=== PATIENT | male | born 1935 | race Caucasian/White ===

== ENCOUNTER → 2017-10-17 | Day surgery (SDC) | payer MEDICARE ==
[2017-10-10 10:40] LABS: BASOPHILS % 0.3 % (0.0-1.0); EOSINOPHILS # (AUTO) 0.1 (0.0-0.4); EOSINOPHILS % 0.8 % (0.0-6.0); HEMATOCRIT 37.1 % (38.2-49.6); HEMOGLOBIN 12.4 g/dL (14.0-18.0); LYMPHOCYTES # (AUTO) 0.9 (1.0-3.2); LYMPHOCYTES % 14.6 % (18.0-39.1); MEAN CORPUSCULAR HGB CONC 33.4 g/dL (31-35); MEAN CORPUSCULAR VOLUME 95.9 fL (81-99); MONOCYTES # (AUTO) 0.5 (0.2-0.8); MONOCYTES % 7.6 % (4.4-11.3); NEUTROPHILS # (AUTO) 4.9 (2.1-6.9); NEUTROPHILS % 76.1 % (38.7-80.0); PLATELET COUNT 98 x10e3/uL (140-360); RED BLOOD COUNT 3.87 x10e6/uL (4.3-5.7); RED CELL DISTRIBUTION WIDTH 12.2 % (11.7-14.4)
[2017-10-10 11:10] LABS: ANION GAP 11.2 mmol/L (8-16); CALCIUM 9.6 mg/dL (8.4-10.2); CREATININE, SERUM 1.3 mg/dL (0.72-1.25); POTASSIUM 4.2 mmol/L (3.5-5.1)
--- NOTE | 2017-10-10 11:15 | Diagnostic Imaging Report ---
PROCEDURE:CHEST 2 VIEWS TECHNIQUE:PA and lateral chest INDICATION:Preoperative evaluation for prostate surgery COMPARISON:None. FINDINGS: Symmetric hyperinflation lungs are otherwise clear. No pleural effusions. Normal heart size and mediastinal contour. Intact skeleton. Atherosclerosis of the descending thoracic aorta. CONCLUSION: Hyperinflation in keeping with air trapping from COPD. Dictated by: Darell Gramajo M.D. on 10/10/2017 at 11:16 Electronically approved by: Darlel Gramajo M.D. on 10/10/2017 at 11:16
[~2017-10-17] MED LIST: ALDACTONE25 MG; ALDACTONE50 MG PO; ALENDRONATE SOD70 MG PO; BELLADONNA/OPIUM 60 MG SUPP PR ONE; CEFAZOLIN SOD 1 GM VIAL ONE; DEXAMETHASONE SOD PHOS INJ 4 MG/ML VIAL ONE; DOXAZOSIN MESYLA2 MG PO; EPHEDRINE SULFATE INJ 50 MG/10 ML SYR ONE; FENTANYL CITRATE/PF 100MCG/2 ML INJ ONE; GLYCOPYRROLATE INJ 1MG/ 5 ML SYR ONE; IOPAMIDOL 610MG/1ML 300 MG/ML VIAL IV ONE; LIDOCAINE HCL 2% LOCAL INJ 5 ML SDV VIAL INJ ONE; MOBIC7.5 MG PO; ONDANSETRON HCL INJ 2 MG/ML VIAL ONE; PRAVASTATIN SOD10 MG; PRAVASTATIN SOD20 MG PO; PROPOFOL IV EMULSION 10 MG/ML 20 ML VIAL ONE; SEVOFLURANE INHAL SOLN 250 ML PEN BTL ONE; ZESTRIL20 MG PO
--- OUTSIDE RECORDS SUMMARY | 2017-10-17 05:19 | XMS REPORT | Clinical Summary ---
Author Author MICHAEL [facility] Address Unknown Phone Unavailable Care Team Providers Care Psychometrist Name Role Phone PCP Unavailable Allergies No Known Allergies Current Medications Prescription Sig. Disp. Refills Start End Date Status Date pravastatin (PRAVACHOL) Take 10 mg by mouth Active 20 MG tablet daily. lisinopril Take 10 mg by mouth Active (PRINIVIL,ZESTRIL) 10 MG daily. tablet spironolactone Take 25 mg by mouth Active (ALDACTONE) 50 MG tablet daily. alendronate (FOSAMAX) 70 Take 70 mg by mouth every Active MG tablet 7 days Take in the morning with a full glass of water, on an empty stomach, and do not take anything else by mouth or lie down for the next 30 min. . meloxicam (MOBIC) 7.5 MG Take 7.5 mg by mouth Active tablet every other day. multivitamin per tablet Take 1 tablet by mouth Active daily. Missing or Non-Formulary Take 2 mg by mouth every Active Medication other day DOXAZONSIN . 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[facility]) 09/14/2015 Subdural hemorrhage, nontraumatic ([facility]) 09/12/2015 Social History Tobacco Use Types Packs/Day Years Used Date Former Smoker Alcohol Use Drinks/Week oz/Week Comments No Sex Assigned at Date Recorded Not on file Last Filed Vital Signs Not on file Plan of Treatment Not on file Implants Implanted Type Area Buyer Broker Device Expiration Model / Identifier Date Serial / Lot Matrix Floseal Hemo W/O Ndl 10 Cement/[place] Left: Head HOWELL:BIOSCI [id number] / [id number] - [id number] ler/Adhesi / Implanted: Qty: 1 on 09/14/2015 by ve [id number] Kahlil Hernandez MD Cover [place] Hole Low Prof 10mm Fracture/F Left: Head BENJIE:BENJIE [id number] / [id number] - [id number] ixation LEIBINGER / Implanted: Qty: 2 on 09/14/2015 by Kahlil Hernandez MD Plt W/Tab Un3 2h [id number] - Fracture/F Left: Head BENJIE:CRANIOM [id number] / [id number] ixation AXILLOFACIAL / Implanted: Qty: 2 on 09/14/2015 by Kahlil Hernandez MD Cath Lumen Evd Bactisealclr - Neuro Left: Head J &J:CODMAN & 2016 [id number] / [id number] SHURTLEFF / Implanted: Qty: 1 on 09/14/2015 by [id number] Kahlil Hernandez MD Gold Screws Neuro Left: Head [id number] / Implanted: Qty: 9 on 09/14/2015 by / Kahlil Hernandez MD Results Not on fileafter 10/16/2016
--- OUTSIDE RECORDS SUMMARY | 2017-10-17 05:19 | XMS REPORT ---
Author [facility] Address Unknown Phone Unavailable Care Team Providers Care Fire Information Officer Name Role Phone NORA DAWSON Unavailable Unavailable Problems This patient has no known problems. Allergies, Adverse Reactions, Alerts This patient has no known allergies or adverse reactions. Medications This patient has no known medications. Results Test Description Test Time Test Comments Text Results Atomic Results Result Comments CHEST 2 VIEWS [place] [id number] [place] [address] Patient Name: URSULA VASQUEZ MR #: [id number] : 1935 Age/Sex: 81/M Req #: [id number] Adm Physician: Ordered by: NORA DAWSON MD Report #: [id number] Location: OR Room/Bed: Procedure: [id number] DX/ CHEST 2 VIEWS Exam Date: 10/10/17 Exam Time: 1030 REPORT STATUS: Signed PROCEDURE: CHEST 2 VIEWS TECHNIQUE: PA and lateral chest INDICATION: Preoperative evaluation for prostate surgery COMPARISON: None. FINDINGS: Symmetric hyperinflation lungs are otherwise clear. No pleural effusions. Normal heart size and mediastinal contour. Intact skeleton. Atherosclerosis of the descending thoracic aorta. CONCLUSION: Hyperinflation in keeping with air trapping from COPD. Dictated by: Lashawn Gramajo M.D. on 10/10/2017 at 11:16 Electronically approved by: Lashawn Gramajo M.D. on 10/10/2017 at 11: 16 Dictated By: LASHAWN GRAMAJO MD [id number] Transcribed By: SOLO on 10/10/17 1116 COPY TO: NORA DAWSON MD
--- NOTE | 2017-10-17 08:37 | Operative Report ---
DATE OF PROCEDURE: October 17, 2017 PREOPERATIVE DIAGNOSES 1. BPH. 2. Bladder outlet obstruction. 3. Bladder lesion. POSTOPERATIVE DIAGNOSES 1. BPH. 2. Bladder outlet obstruction. 3. Bladder lesion. OPERATION PERFORMED: Cystoscopy, retrograde pyelograms, bladder biopsy, UroLift implant 2 per side for a total of 4. ANESTHESIA: Staff. Anesthesia general. FINDINGS: Bilobar hyperplasia bilaterally. High-grade 1 to 2 trabeculation. Large amount of petechiae in the bladder. No stricture was seen. PROCEDURE: With the patient under satisfactory general anesthesia, the patient was placed in the supine position on the operating table. Legs were placed on stirrups. Genitalia were then prepped with Betadine soap and solution and draped in the usual manner. A 22-Congolese cystourethroscope was passed per urethra into the bladder. The bladder was inspected and noted multiple petechiae throughout the bladder. Cup biopsy forceps were used to obtain 2 biopsies from the bladder for mast cell count. After that, the Bugbee electrode was introduced, and the bases of the biopsy sites were fulgurated to prevent bleeding. At this point, the cystoscope was changed to a cystoscopy bridge by Nicole. The UroLift delivery device was then placed in. Four UroLift implants were used, 2 on the right and 2 on the left. The 1st side treated was the left side. It shows a treatment site 1.5 cm distal to the bladder neck. The distal tip delivery device was angled laterally approximately 20 degrees. The trigger was pulled, deploying a needle containing the implant through the prostate. The needle was then retracted, allowing 1 end of the implant to be delivered to the capsular surface of the prostate. The implant was then tensioned to ensure capsular sitting and removal of slack monofilament. At this point, verification of the monofilament being centered in the delivery bay was seen. Excess filament was then severed. The delivery device was then readvanced into the bladder. Some bleeding was noted from the 1st implant. The delivery device was then replaced with cystoscope and bridge, and the implantation location opening effect was confirmed cystoscopically. This was repeated 1 more time on the left side and then twice on the right side. At the end of the procedure, some bleeding was identified coming from the left side of the implant. At this point, a 16-Congolese Raygoza catheter was passed per urethra into the bladder. Bloody efflux was identified, but no clots were seen. At this point, the B and O suppository was placed in the rectum. Instruments had been removed. The patient was taken to the recovery room in satisfactory condition. DISCHARGE INSTRUCTIONS: He was given a prescription for Augmentin to take twice daily. He will be seen in the office within 24 hours where the Raygoza catheter will be removed. The was told to be aware of bleeding, and if there is any problem with drainage to call me at the office so I can see the patient immediately. Job#: [id number]
== END | disposition home or self-care (01) ==
LOC: OR 05:16
PROVIDERS: ATTEND Urology
DX: N40.1 Benign prostatic hyperplasia with lower urinary tract symptoms (principal); N13.8 Other obstructive and reflux uropathy; R35.1 Nocturia; E85.89 Other amyloidosis; N32.89 Other specified disorders of bladder; R23.3 Spontaneous ecchymoses; I10 Essential (primary) hypertension; J44.9 Chronic obstructive pulmonary disease, unspecified; R00.1 Bradycardia, unspecified; Z01.810 Encounter for preprocedural cardiovascular examination; H91.90 Unspecified hearing loss, unspecified ear; Z01.812 Encounter for preprocedural laboratory examination; Z01.818 Encounter for other preprocedural examination; Z86.73 Personal history of transient ischemic attack (TIA), and cerebral infarction without residual deficits
CPT/HCPCS: 52204; C9740; 36415; 71046; 74420; 80053; 85025; 87086; 87186; 88305; 88313; 93005; J0690; J1100; J2001; J2405

== ENCOUNTER 2020-04-15 16:53 | Emergency (ER) | payer MEDICARE ==
[~2020-04-15] VITALS: Ht 172.7 cm; Wt 72.6 kg
[~2020-04-15 16:53] MED LIST changes: -BELLADONNA/OPIUM 60 MG SUPP PR ONE; -CEFAZOLIN SOD 1 GM VIAL ONE; -DEXAMETHASONE SOD PHOS INJ 4 MG/ML VIAL ONE; -EPHEDRINE SULFATE INJ 50 MG/10 ML SYR ONE; -FENTANYL CITRATE/PF 100MCG/2 ML INJ ONE; -GLYCOPYRROLATE INJ 1MG/ 5 ML SYR ONE; -IOPAMIDOL 610MG/1ML 300 MG/ML VIAL IV ONE; -LIDOCAINE HCL 2% LOCAL INJ 5 ML SDV VIAL INJ ONE; -ONDANSETRON HCL INJ 2 MG/ML VIAL ONE; -PROPOFOL IV EMULSION 10 MG/ML 20 ML VIAL ONE; -SEVOFLURANE INHAL SOLN 250 ML PEN BTL ONE
--- OUTSIDE RECORDS SUMMARY | 2020-04-15 17:35 | XMS REPORT | Continuity of Care Document ---
Author Author Jamal [facility] [employer] Fidelia, Vaughn Ericcrescencio Lopez [facility] [employer] ([employer]) Address Unknown Phone Unavailable Care Team Providers Care Design Printing Machine Set Up Operator Name Role Phone 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 [facility] [place] Hypercholesterolemia (disorder) Active Problem OPID [place],Formerly named [facility] Hypertensive disorder, systemic arterial (disorder) Active Problem 03/25/2020 [facility],Formerly named [facility] Medications Medication Details Route Status Patient Instructions Ordering Provider Order Date Source metoclopramide (ANES) Route: I V, Drug form: INJ, ONCE, Stop date: 04/15/16 12:08:00 ROUGH RICE TENDER Inactive 04/15/2016 Formerly named [facility] midazolam (ANES) Route: IV, ug form: SOLN, ONCE, Stop date: 04/15/16 11:33:00 ROUGH RICE TENDER Inactive 04/15/2016 Formerly named [facility] glycopyrrolate (ANES) Route: I V, Drug form: INJ, ONCE, Stop date: 04/15/16 11:33:00 ROUGH RICE TENDER Inactive 04/15/2016 Formerly named [facility] metoclopramide (ANES) Route: I V, Drug form: INJ, ONCE, Stop date: 04/15/16 11:33:00 ROUGH RICE TENDER Inactive 04/15/2016 Formerly named [facility] famotidine (ANES) Route: IV, D rug form: INJ, ONCE, Stop date: 04/15/16 11:33:00 ROUGH RICE TENDER Inactive 04/15/2016 Formerly named [facility] dexamethasone (ANES) Route: IV , Drug form: INJ, ONCE, Stop date: 04/15/16 11:28:00 ROUGH RICE TENDER Inactive 04/15/2016 Formerly named [facility] ondansetron (ANES) Route: IV, Drug form: INJ, ONCE, Stop date: 04/15/16 11:28:00 ROUGH RICE TENDER Inactive 04/15/2016 Formerly named [facility] ePHEDrine (ANES) Route: IV, Dr ug form: INJ, ONCE, Stop date: 04/15/16 11:28:00 ROUGH RICE TENDER Inactive 04/15/2016 Formerly named [facility] acetaminophen (ANES) Route: IV , Drug form: INJ, ONCE, Stop date: 04/15/16 11:28:00 ROUGH RICE TENDER Inactive 04/15/2016 Formerly named [facility] ceFAZolin (ANES) Route: IV, Dr ug form: INJ, ONCE, Stop date: 04/15/16 11:23:00 ROUGH RICE TENDER Inactive 04/15/2016 Formerly named [facility] propofol (ANES) Route: IV, Alexander g form: INJ, ONCE, Stop date: 04/15/16 11:23:00 ROUGH RICE TENDER Inactive 04/15/2016 Formerly named [facility] fentaNYL (ANES) Route: IV, Alexander g form: INJ, ONCE, Stop date: 04/15/16 11:18:00 ROUGH RICE TENDER Inactive 04/15/2016 Formerly named [facility] lidocaine (ANES) Route: IV, Dr ug form: INJ, ONCE, Stop date: 04/15/16 11:18:00 ROUGH RICE TENDER Inactive 04/15/2016 Formerly named [facility] Naloxone Notes: Same as Narcan Inactive 04/15/2016 Formerly named [facility] Flumazenil Notes: (Same as: Ro mazicon) Inactive 04/15/2016 Formerly named [facility] Ondansetron Notes: (Same as: Portia ellis) MEDICATION WASTE Product Size: 4 mg Product Wasted: ___ mg Inactive 04/15/2016 Formerly named [facility] Meperidine Notes: (Same As: De merol) Inactive 04/15/2016 Formerly named [facility] Hydromorphone Notes: Same as D ilaudid Inactive 04/15/2016 Formerly named [facility] Morphine Notes: (Same as:MORPh ine Sulfate) Inactive 04/15/2016 Formerly named [facility] Calcium Chloride 0.0014 MEQ/ML / Potassi um Chloride 0.004 MEQ/ML / Sodium Chloride 0.103 MEQ/ML / Sodium Lactate 0.028 MEQ/ML Injectable Solution 1,000 mL, Rate: 125 ml/hr, Infuse over: 8 hr, Route: IV, Dosing Weight 74.091 kg, Total Volume: 1,000, Start date: 04/15/16 9:43:00 ROUGH RICE TENDER, Duration: 30 day, Stop date: 05/15/16 9:42:00 ROUGH RICE TENDER Inactive 04/15/2016 Formerly named [facility] Hydralazine Notes: (Same as: A presoline) Push over 5 minutes Inactive 04/15/2016 Formerly named [facility] Ketorolac 4 days MEDICA TION WASTE Product Size: 30 mg Product Wasted: ___ mg Inactive 04/15/2016 Formerly named [facility] Labetalol Notes: (Same as: Brennon Pelaez) Push over 2 minutes Give bolus over 2-3 minutes. Inactive 04/15/2016 Formerly named [facility] Cefazolin Notes: Same as: Ancef Inactive 04/15/2016 Formerly named [facility] Calcium Chloride 0.0014 MEQ/ML / Potassi um Chloride 0.004 MEQ/ML / Sodium Chloride 0.103 MEQ/ML / Sodium Lactate 0.028 MEQ/ML Injectable Solution 1,000 mL, Rate: 25 ml/hr, Infuse over: 4 0 hr, Route: IV, Dosing Weight 74.091 kg, Total Volume: 1,000, Start date: 04/15/16 9:40:00 ROUGH RICE TENDER, Duration: 30 day, Stop date: 05/15/16 9:39:00 ROUGH RICE TENDER Inactive 04/15/2016 Formerly named [facility] LR 1000 mL INJ (ANES) Route: I V, Total Volume: 1,000, Start date: 04/15/16 9:17:00 ROUGH RICE TENDER, Stop date: 04/15/16 10:17:00 ROUGH RICE TENDER Inactive 04/15/2016 Formerly named [facility] multivitamin 1 tab, PO, Daily, 0 Refill(s) Active 04/06/2016 Formerly named [facility] meloxicam 7.5 mg oral tablet 7 .5 mg = 1 tab, PO, Daily, # 30 tab, 0 Refill(s) Active 04/06/2016 Formerly named [facility] Alendronic acid 70 MG Oral Tablet 70 mg = 1 tab, PO, Q7D, # 4 tab, 0 Refill(s) Active 04/06/2016 Formerly named [facility] doxazosin 2 mg oral tablet 2 m g = 1 tab, PO, Daily, # 30 tab, 0 Refill(s) Active 04/06/2016 Formerly named [facility] spironolactone 50 mg oral tablet 25 mg = 0.5 tab, PO, Daily, 0 Refill(s) Active 04/06/2016 Formerly named [facility] lisinopril 20 mg oral tablet 1 0 mg = 0.5 tab, PO, Daily, 0 Refill(s) Active 04/06/2016 Formerly named [facility] pravastatin 20 mg oral tablet 10 mg = 0.5 tab, PO, Bedtime, 0 Refill(s) Active 04/06/2016 Formerly named [facility] Allergies, Adverse Reactions, Alerts Substance Category Reaction Severity Reaction type Status Date Reported Comments Source No Known Medication Allergies Assertion Drug aller gy BALDO Rogers Immunizations No Data Provided for This Section Results No Data Provided for This Section Pathology Reports No Data Provided for This Section Diagnostic Reports Report Value Date Source Shoulder series DX Exam: Righ t shoulder x-ray, 3 views Reason for Exam: - 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 Bulky osteophyte formation seen of the right glenohumeral joint and right AC joint. Correlate for rotator cuff impingement and consider further evaluation with MRI exam. No suspicious osteoblastic or osteolytic lesions seen to suggest pathologic involvement. The visualized portions of the right rib cage and right lung are unremarkable. Impression: 1. Bulky osteophyte formation seen of t he right glenohumeral joint and right AC joint. Correlate for rotator cuff impingement and consider further evaluation with MRI exam. 03/23/2020 RAMIREZD Edgar Abdomen complete US ABDOMINAL ULTRASOUND INDICATION: - R14.0 Abdominal distension (gaseous) TECHNIQUE: Grayscale and limited doppler images of the abdomen were obtained and construction representative images were submitted for interpretation. COMPARISON: None FINDINGS: Overlying bowel gas limits evaluation. Liver: the liver is normal in size and measures 14 cm (normal: 13-17 cm). The liver echogenicity is heterogeneous. No surface nodularity. Portal and hepatic veins are patent with normal directions of flow. Biliary: Gallstone is noted. There is no gallbladder wall thickening or sonographic West sign to suggest acute cholecystitis. There is no biliary duct dilation. Mid common bile duct measures 4 mm in diameter. Pancreas: Grossly unremarkable; however, certain portions are obscured by overlying bowel gas and unable to be evaluated. Spleen: Measures 11 cm in maximal dimension (normal < 13 cm). No focal lesion is seen. Kidneys: Right kidney measures 10 cm and left kidney measure 9 cm in length, respectively (normal: 9-12 cm). No hydronephrosis or large shadowing stone. 3 cm simple appearing right renal cyst. Vascular: Visualized portions of the IVC are patent. Atherosclerosis with no obvious aneurysmal dilatation of the aorta. IMPRESSION: Overlying bowel gas limits evaluation. Grossly, mildly heterogeneous liver which can be correlated with LFTs. Cholelithiasis. The pancreas is not well-visualized. Simple appearing right renal cyst. 03/20/2020 OPID [place] Spine lumbar wo contrast MRI M RI LUMBAR SPINE WITHOUT CONTRAST 10/24/2016 11:26 AM CDT COMPARISON: No prior exam. TECHNIQUE: Sagittal T1, sagittal T2 with fat saturation, axial T1 and axial T2 images were obtained. No intravenous gadolinium was given. FINDINGS: The conus medullaris terminates at the L1 level. Chronic T12 vertebral compression fracture is present, with approximately 40% loss of vertebral height. No marrow edema is seen. Mild retropulsion with mild T12 level central canal stenosis is present. T12-L1: Approximately 1.5 mm disc bulge is present with mild central canal stenosis. No mass effect on the conus medullaris. Mild bilateral foraminal stenosis due to bilateral foraminal and extraforaminal disc osteophyte complexes. L1-L2: 1.5 mm disc bulge and moderate facet arthrosis and ligamenta flava redundancy is seen with mild central canal stenosis. Moderate bilateral foraminal stenosis due to bilateral foraminal disc osteophyte complex encroachment. L2-L3: Significant ligamenta flava redundancy and moderate facet arthrosis. Approximately 3.5 mm posterior disc osteophyte complex with moderate to severe central canal stenosis. Severe bilateral foraminal stenosis due to foraminal osteophytes. L3-L4: Severe ligamenta flava redundancy with 2 mm retrolisthesis and 3.3 mm disc bulge. Severe central canal stenosis is present. Severe bilateral foraminal stenosis is present. L4-L5: Severe facet arthrosis and ligamenta flava redundancy with 2 mm anterolisthesis and 3.5 mm disc bulge with severe central canal stenosis, severe right lateral recess stenosis, severe bilateral foraminal stenosis. L5-S1: Right asymmetric posterior disc osteophyte complex measuring 3 mm is present with right lateral recess stenosis and significant mass effect on the right S1 descending nerve root. Mild central canal stenosis. Moderate to severe bilateral foraminal stenosis. Right renal 2.2 cm simple cyst is present. IMPRESSION: 1. Significant multilevel lumbar spine d egenerative changes. 2. Chronic T12 vertebral compression fra cture with mild retropulsion and mild central canal stenosis. No marrow edema. 3. L2-L3 moderate to severe central thania l stenosis. L3-L4 and L4-L5 severe central canal stenosis. 4. L4-L5 and L5-S1 severe right lateral recess stenosis with mass effect on the right L5 and S1 descending nerve roots. 5. Multiple level severe foraminal steno sis. 10/24/2016 BALDO Rogers Consultation Notes No Data Provided for This Section Discharge Summaries No Data Provided for This Section History and Physicals No Data Provided for This Section Vital Signs Vital Sign Value Date Comments Source Systolic (mm Hg) 116 04/15/2016 Formerly named [facility] Diastolic (mm Hg) 55 04/15/2016 Formerly named [facility] Respitory Rate 17 04/15/2016 Formerly named [facility] Respitory Rate 13 04/15/2016 Formerly named [facility] Systolic (mm Hg) 116 04/15/2016 Formerly named [facility] Diastolic (mm Hg) 55 04/15/2016 Formerly named [facility] Respitory Rate 15 04/15/2016 Formerly named [facility] Systolic (mm Hg) 115 04/15/2016 Formerly named [facility] Diastolic (mm Hg) 56 04/15/2016 Formerly named [facility] Weight 74.091 04/06/2016 Formerly named [facility] BMI Calculated 24.47 04/06/2016 Formerly named [facility] Height 173.99 cm 04/06/2016 Formerly named [facility] Encounters Location Location Details Encounter Type Encounter Number Reason For Visit Attending Provider ADM Date DC Date Status Source [facility] [id number] Anne-Marie Osorio 04/15/2016 04/15/2016 [facility] [place] [facility] [id number] Liu Brock 10/24/2016 10/25/2016 BALDO Rogers [facility] [place] [facility] [id number] Liu Brock 03/20/2020 03/21/2020 BALDO Rogers [facility] [place] [facility] [id number] Liu Brock 03/23/2020 03/24/2020 BALDO Rogers Procedures Procedure Code Date Perfomer Comments Source Craniotomy and clipping of intracranial aneurysm [id number] 09/14/2015 [facility] Bilateral replacement of knee joints [id number] 06/05/2009 [facility]DO [facility]Former[facility] named [facility] Assessment and Plan No Data Provided for This Section Plan of Care No Data Provided for This Section Social History Social History Date Source Social History TypeResponse Smoking Status Never smoker; Exposure to Tobacco Smoke None; Cigarette Smoking Last 365 Days No; Reg Smoking Cessation Counseling No entered on: 04/06/16 04/06/2016 BALDO Rogers Social History TypeResponse Smoking Status Never smoker; Exposure to Tobacco Smoke None; Cigarette Smoking Last 365 Days No; Reg Smoking Cessation Counseling No 04/06/2016 Formerly named [facility] Family History No Data Provided for This Section Advance Directives No Data Provided for This Section Functional Status No Data Provided for This Section
--- OUTSIDE RECORDS SUMMARY | 2020-04-15 17:35 | XMS REPORT | Continuity of Care Document ---
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, LUMBAR REGION Active 10/19/2016 [facility] [place] Diagnosis Active 2016-10-19 00:01:00 2016-10-24 11:01:00 Jamal Tomlin [address]01, 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 84968, 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 Active 03/17/2016 [facility] Diagnosis Active 2016-03-17 00:00:00 2016-04-15 05:09:00 Jamal Tomlin Thrombocytopenia Thrombocytopenia Disease Active 2015-09-15 00:00:00 [facility] Normocytic anemia Normocytic anemia Disease Active 2015-09-15 00:00:00 [facility] Hyperglycemia Hyperglycemia Disease Active 2015-09-15 00:00:00 [facility] Essential hypertension Essential hypertension Disease Active 2015-09-14 00:00:00 [facility] Platelet dysfunction Platelet dysfunction Disease Active 00:00:00 [facility] Subdural hemorrhage, nontraumatic Subdural hemorrhage, nontrauma tic Disease Active 2015-09-12 00:00:00 [facility] MANOHAR BILLING BYRON DE LUNA BILLING Active 09/12/2015 [facility] Diagnosis Active 2015-09-12 00:00:00 2015-09 15:02:00 Jamal Tomlin 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 Problem 03[facility]25[facility]2020 [facility] Active 2020-03-25 23:12:51 Carrington Tomlin Hypercholesterolemia (disorder) Hypercholesterolemia (disorder) Active Problem [facility]/25[facility]2020 [facility] Active 2020-03-25 23:12:51 Zara Tomlin Hypertensive disorder, systemic arterial (disorder) Hypertensive disorder, systemic arterial (disorder) Active [facility]/25[facility]2020 [facility] Active 2020-03-25 23:12:51 Jamal Tomlin History of Past Illness Condition Name Condition Details Condition Category Status Onset Date Resolution Date Last Treatment Date Treating Clinician Comments Source 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 06/05/1997 Problem 03/25/2020 [facility] 1997-06-05 00: 00:00 2020-03-25 23:12:51 2020-03-25 23:12:51 Jamal Tomlin Allergies, Adverse Reactions, Alerts Allergy Name Allergy Type Status Severity Reaction(s) Onset Date Inacti ve Date Treating Clinician Comments Source No Known Medication Allergies No Known Medication Allergies Active [facility] Social History Social Habit Start Date Stop Date Quantity Comments Source Sex Assigned At [facility] Alcohol intake 2015-09-15 00:00:00 2015-09-15 00:00:00 Current non-drinker of alcohol (finding) [facility] Dwaynee shakir Smoking Status Start Date Stop Date Source Social History Jamal Tomlin Former smoker 2015-09-15 00:00:00 2015-09-15 00:00:00 [facility] Medications Ordered Medication Name Filled Medication Name Start Date Stop Da te Current Medication? Ordering Clinician Indication Dosage Frequency Signature (SIG) Comments Components Source metoclopramide (ANES) 2016-04-15 18:08:00 No Route: IV, Drug form: INJ, ONCE, Stop date: 04/15/16 12:08:00 MANAGER DISTRIBUTION Jamal Tomlin midazolam (ANES) 2016-04-15 17:33:00 No Route: IV, Drug form: SOLN, ONCE, Stop date: 04/15/16 11:33:00 [employer]NAGER [employer]RIBUT[employer] Keerthi Hartmanann glycopyrrolate (ANES) 2016-04-15 17:33:00 No Route: IV, Drug form: INJ, ONCE, Stop date: 04/15/16 11:33:00 [employer]NAGER [employer] Jamal Hartmanann metoclopramide (ANES) 2016-04-15 17:33:00 No Route: IV, Drug form: INJ, ONCE, Stop date: 04/15/16 11:33:00 [employer]NAGER [employer] Jamal Tomlin famotidine (ANES) 2016-04-15 17:33:00 No Route: IV, Drug form: INJ, ONCE, Stop date: 04/15/16 11:33:00 MANAGER DISTRIBUTION Keerthi mari Tomlin dexamethasone (ANES) 2016-04-15 17:28:00 No Route: IV, Drug form: INJ, ONCE, Stop date: 04/15/16 11:28:00 MANAGER DISTRIBUT[employer] Jamal Hartmanann ondansetron (ANES) 2016-04-15 17:28:00 No Route: IV, Drug form: INJ, ONCE, Stop date: 04/15/16 11:28:00 MANAGER DISTRIBUTION Keerthi dentonkatharinedoron N[place] ePHEDrine (ANES) 2016-04-15 17:28:00 No Route: IV, Drug form: INJ, ONCE, Stop date: 04/15/16 11:28:00 MANAGER DISTRIBUTION Keerthi mari Tomlin acetaminophen (ANES) 2016-04-15 17:28:00 No Route: IV, Drug form: INJ, ONCE, Stop date: 04/15/16 11:28:00 MANAGER DISTRIBUTION Jamal N[place] ceFAZolin ([facility]) 2016-04-15 17:23:00 No Route: IV, Drug form: INJ, ONCE, Stop date: 04/15/16 11:23:00 MANAGER DISTRIBUTION Keerthi Tomlin propofol ([facility]) 2016-04-15 17:23:00 No Route: IV, Drug form: INJ, ONCE, Stop date: 04/15/16 11:23:00 MANAGER DISTRIBUTION [facility] fentaNYL ([facility]) 2016-04-15 17:18:00 No Route: IV, Drug form: INJ, ONCE, Stop date: 04/15/16 11:18:00 MANAGER DISTRIBUTION Keerthi [facility] [address] lidocaine ([facility]) 2016-04-15 17:18:00 No Route: IV, Drug form: INJ, ONCE, Stop date: 04/15/16 11:18:00 MANAGER DISTRIBUTION [facility]thi [facility] [place] Naloxone 2016-04-15 15:43:00 No Notes: Same as Narcan [facility] Flumazenil 2016-04-15 15:43:00 No Notes: (S meenakshi as: Romazicon) [facility] Ondansetron 2016-04-15 15:43:00 No Notes: (Same as: Zofran) MEDICATION WASTE Product Size: 4 mg Product Wasted: ___ mg [facility] Meperidine 2016-04-15 15:43:00 No Notes: (S meenakshi As: Demerol) [facility] Hydromorphone 2016-04-15 15:43:00 No Notes: Same as Dilaudid [facility] Morphine 2016-04-15 15:43:00 No Not es: (Same as:MORPhine Sulfate) [facility] Calcium Chloride 0.0014 MEQ/ML / Potassi um Chloride 0.004 MEQ/ML / Sodium Chloride 0.103 MEQ/ML / Sodium Lactate 0.028 MEQ/ML Injectable Solution 2016-04-15 15:43:00 No 1,000 mL, Rate: 125 ml/hr, Infuse over: 8 hr, Route: IV, Dosing Weight 74.091 kg, Total Volume: 1,000, Start date: 04/15/16 9:43:00 MANAGER DISTRIBUTION, Duration: 30 day, Stop date: 05/15/16 9:42:00 MANAGER DISTRIBUTION [facility] Hydralazine 2016-04-15 15:43:00 No Notes: (Same as: Apresoline) Push over 5 minutes [facility] [address] Ketorolac 2016-04-15 15:43:00 Yes 4 days MEDICATION WASTE Product Size: 30 mg Product Wasted: ___ mg [facility] [address] Labetalol 2016-04-15 15:43:00 No Notes: (Same as: Normodyne, Trandate) Push over 2 minutes Give bolus over 2-3 minutes. [facility] [address] Cefazolin 2016-04-15 15:41:00 No Notes: Ursula e as: Ancef [facility] Calcium Chloride 0.0014 MEQ/ML / Potassi um Chloride 0.004 MEQ/ML / Sodium Chloride 0.103 MEQ/ML / Sodium Lactate 0.028 MEQ/ML Injectable Solution 2016-04-15 15:40:00 No 1,000 mL, Rate: 25 ml/hr, Infuse over: 40 hr, Route: IV, Dosing Weight 74.091 kg, Total Volume: 1,000, Start date: 04/15/16 9:40:00 MANAGER DISTRIBUTION, Duration: 30 day, Stop date: 05/15/16 9:39:00 MANAGER DISTRIBUTION [facility] LR 1000 mL INJ (ANES) 2016-04-15 15:17:00 No Route: IV, Total Volume: 1,000, Start date: 04/15/16 9:17:00 MANAGER DISTRIBUTION, Stop date: 04/15/16 10:17:00 MANAGER DISTRIBUTION [facility] [address] multivitamin 2016-04-06 17:58:00 Yes 1 tab, PO, Daily, 0 Refill(s) Jamal Tomlin meloxicam 7.5 mg oral tablet 2016-04-06 17:58:00 Yes 7.5 mg = 1 tab, PO, Daily, # 30 tab, 0 Refill(s) Anjalioria l [address] Alendronic acid 70 MG Oral Tablet 2016-04-06 17:58:00 Yes 70 mg = 1 tab, PO, Q7D, # 4 tab, 0 Refill(s) Zara Tomlin doxazosin 2 mg oral tablet 2016-04-06 17:57:00 Yes 2 mg = 1 tab, PO, Daily, # 30 tab, 0 Refill(s) Jamal jasso spironolactone 50 mg oral tablet 2016-04-06 17:57:00 Yes 25 mg = 0.5 tab, PO, Daily, 0 Refill(s) Jamal edward lisinopril 20 mg oral tablet 2016-04-06 17:56:00 Yes 10 mg = 0.5 tab, PO, Daily, 0 Refill(s) Jamal edward pravastatin 20 mg oral tablet 2016-04-06 17:55:00 Yes 10 mg = 0.5 tab, PO, Bedtime, 0 Refill(s) Jamal nguyen pravastatin (PRAVACHOL) 20 MG tablet 2015-09-22 10:52:58 Ye s 10mg QD Take 10 mg by mouth daily. [facility] lisinopril (PRINIVIL,ZESTRIL) 10 MG tablet 2015-09-22 10:52:58 Yes 10mg QD Take 10 mg by mouth daily. [facility] spironolactone (ALDACTONE) 50 MG tablet 2015-09-22 10:52:58 Yes 25mg QD Take 25 mg by mouth daily. [facility] alendronate (FOSAMAX) 70 MG tablet 2015-09-22 10:52:58 Yes 70mg Take 70 mg by mouth every 7 days Take in the morning with a full glass of water, on an empty stomach, and do not take anything else by mouth or lie down for the next 30 min. . [facility] meloxicam (MOBIC) 7.5 MG tablet 2015-09-22 10:52:58 Yes 7.5mg Take 7.5 mg by mouth every other day. [facility] multivitamin per tablet 2015-09-22 10:52:58 Yes 1{tbl} QD Take 1 tablet by mouth daily. [facility] Missing or Non-Formulary Medication 2015-09-22 10:52:58 Yes 2mg Take 2 mg by mouth every other day DOXAZONSIN . [facility] Vital Signs Vital Name Observation Time Observation Value Comments Source Systolic (mm Hg) 2016-04-15 19:10:00 Carrington Tomlin Diastolic (mm Hg) 2016-04-15 19:10:00 Anjali Tomlin Respitory Rate 2016-04-15 19:10:00 [facility] [place] Respitory Rate 2016-04-15 19:00:00 [facility] [place] Systolic (mm Hg) 2016-04-15 19:00:00 Carrington rial [place] Diastolic (mm Hg) 2016-04-15 19:00:00 Mem orial [place] Respitory Rate 2016-04-15 18:45:00 [facility] [place] Systolic (mm Hg) 2016-04-15 18:45:00 Carrington rial [place] Diastolic (mm Hg) 2016-04-15 18:45:00 Mem orial [place] Weight 2016-04-06 17:44:00 [facility] [place] BMI Calculated 2016-04-06 17:44:00 Memori al [address] Height 2016-04-06 17:44:00 173.99 cm [facility] Procedures Procedure Date / Time Performed Performing Clinician [facility] zakia Craniotomy and clipping of intracranial aneurysm 2015-09-14 05:0 0:00 [facility] Bilateral replacement of knee joints 2009-06-05 00:00:00 [facility] Encounters Start Date/Time End Date/Time Encounter Type Admission Type [facility] Care Department Encounter ID Source 2020-03-23 13:28:00 2020-03-23 23:59:00 [id number] 2020-03-20 08:36:00 2020-03-20 23:59:00 Outpatient Liu Brock [facility] [id number] 2020-01-20 14:16:54 2020-01-20 14:43:46 Office Visit T Lulu youngblood [facility] Allan [id number] 2019-07-22 14:58:12 2019-07-22 17:01:57 Office Visit T Lulu youngblood [facility] Allan [id number] 2019-01-21 09:02:45 2019-01-21 10:14:19 Office Visit Lulu Weeks [facility] [id number] 2016-10-24 10:52:00 2016-10-24 23:59:00 Outpatient Liu Brocklio [facility] [id number] 2016-04-15 00:00:00 2016-04-15 14:10:00 Outpatient Anne-Marie Osorio [facility] [id number] Results Test Description Test Time Test Comments Results Result Comments Source CHEST 2 VIEWS [place] [address] Patient Name: URSULA VASQUEZ MR #: [id number] : 1935 Age/Sex: 81/M Req #: [id number] Adm Physician: Ordered by: NORA DAWSON MD Report #: [id number] Location: OR Room/Bed: Procedure: [id number] DX/CHEST 2 VIEWS Exam Date: 10/10/17 Exam Time: [...] Lashawn Gramajo M.D. on 10/10/2017 at 11:16 Dictated By: LASHAWN GRAMAJO MD 1116 Transcribed By: SOLO on 10/10/17 1116 COPY TO: NORA DAWSON MD
--- OUTSIDE RECORDS SUMMARY | 2020-04-15 17:35 | XMS REPORT | Clinical Summary ---
Author Author MICHAEL [facility] Address Unknown Phone Unavailable Care Team Providers Care Ware Cleaner Name Role Phone Liu Brock PCP Allergies No Known Allergies Medications End Date Status Medication Sig Dispensed Refills Start Date Active pravastatin (PRAVACHOL) Take 10 mg by 0 20 MG tablet mouth daily. Active lisinopril Take 10 mg by 0 (PRINIVIL,ZESTRIL) 10 MG mouth daily. tablet Active spironolactone Take 25 mg by 0 (ALDACTONE) 50 MG tablet mouth daily. Active alendronate (FOSAMAX) 70 Take 70 mg by 0 MG tablet mouth every 7 days Take in the morning with a full glass of water, on an empty stomach, and do not take anything else by mouth or lie down for the next 30 min. . Active meloxicam (MOBIC) 7.5 MG Take 7.5 mg 0 tablet by mouth every other day. Active multivitamin per tablet Take 1 tablet 0 by mouth daily. Active Missing or Non-Formulary Take 2 mg by 0 Medication mouth every other day DOXAZONSIN . Active Problems Problem Noted Date Thrombocytopenia 09/15/2015 Normocytic anemia 09/15/2015 Hyperglycemia 09/15/2015 Essential hypertension 09/14/2015 Platelet dysfunction 09/14/2015 Subdural hemorrhage, nontraumatic 09/12/2015 Social History Date Tobacco Use Types Packs/Day Years Used Former Smoker Drinks/Week oz/Week Comments Alcohol Use No Sex Assigned at Date Recorded Not on file Last Filed Vital Signs Not on file Plan of Treatment Not on file Implants Device Identifier Shelf Expiration Date Model / Serial / L ot Implanted Type Area Manufactur er 01/02/2017 [id number] / / [id number] Matrix Floseal Hemo W/O Ndl 10 Cement/[place] Left: Head HOWELL:BIO [id number] - [id number] ler/Adhesi SCI Implanted: Qty: 1 on 09/14/2015 by Kahlil Kohli MD at [facility] [id number] / / Cover [place] Low Prof 10mm Fracture/F Left: Head BENJIE:ST [id number] - [id number] ixation YUMIKO Implanted: Qty: 2 on 09/14/2015 by Khalil Dimas MD at [facility] [id number] / / Plt W/Tab Un3 2h [id number] - Fracture/F Left: Head ST YUMIKO:CR [id number] ixation ANIOMAXILL Implanted: Qty: 2 on 09/14/2015 by Kahlil Young MD at [facility] 07/05/2016 [id number] / / [id number] Cath Lumen Evd Bactisealclr - Neuro Left: Head J [id number] &J:CODMAN Implanted: Qty: 1 on 09/14/2015 by Kahlil Leos MD [facility] at [facility] [id number] / / Gold Screws Neuro Left: Head Implanted: Qty: 9 on 09/14/2015 by Kahlil Hernandez MD at [facility] Results Not on fileafter 04/15/2019 Insurance Type Payer Benefit Subscriber ID Effective Phone Address Plan / Dates Group Medicare MEDICARE MEDICARE A [id number] B resent [facility] UN [id number] CARE [employer] resent INDEMNITY [phone] Advance Directives For more information, please contact: [phone] Date Inactivated Comments Code Status Date Activated 09/22/2015 12:53 PM Full Code 09/12/2015 5:49 PM This code status was determined by: Patient
[2020-04-15] MEDS ORDERED: HYDROCODONE/APAP 7.5MG-325MG 1 EA TAB PO PRN (18:45)
--- NOTE | 2020-04-15 19:14 | Diagnostic Imaging Report ---
CT BRAIN WO HISTORY: Fall COMPARISON: Brain MRI 12/28/[address] 09/11/2017 Technique: Noncontrast axial scans were obtained from skull base to the vertex. Coronal and sagittal reconstructions obtained from the axial data. One or more of the following dose reduction techniques were used: Automated exposure control, adjustment of the mA and/or kV according to patient size, and/or utilization of iterative reconstruction technique. DISCUSSION: Scalp/Skull: There is a small right frontal scalp hematoma without acute calvarial fracture. Remote left parietal craniotomy changes are noted. Brain sulci: Mildly prominent, especially along the mesial temporal lobes. Ventricles: Compensatory dilatation. Extra-axial spaces: No masses or fluid collections. Carotid siphon calcifications are present. Parenchyma: Mild bilateral deep white matter hypodensity is likely chronic microvascular ischemic change. Prominent perivascular space versus old lacunar infarct in the left thalamocapsular region is unchanged. Otherwise, no masses, hemorrhage, or large vascular territory acute infarct. Dural sinuses: No abnormal densities. Sellar/Suprasellar region: Intact. Skull base: Intact. Incidental findings: None. IMPRESSION: 1. No acute intracranial abnormalities. 2. Mild supratentorial chronic microvascular ischemic change. 3. Left thalamocapsular prominent perivascular space versus old lacunar infarct. 4. Mild generalized cerebral volume loss, slightly accentuated along the mesial temporal lobes. 5. Prior left parietal craniotomy. Signed by: Dr. Yoel Clark M.D. on 04/15/2020 7:11 PM
--- NOTE | 2020-04-15 19:25 | Diagnostic Imaging Report ---
CT CERVICAL SPINE WO HISTORY: Fall COMPARISON: None. TECHNIQUE: CT of the cervical spine without contrast. Sagittal and coronal reformations were created. One or more of the following dose reduction techniques were used: Automated exposure control, adjustment of the mA and/or kV according to patient size, and/or utilization of iterative reconstruction technique. FINDINGS: Cervical lordosis is preserved. There is no significant scoliosis. Mild bone demineralization limits evaluation. No definite acute fracture or compression deformity is seen. The craniocervical junction is intact. No gross spinal canal masses are seen. The paravertebral and paraspinal soft tissues are unremarkable. Degenerative changes: Multilevel advanced spondylotic changes are most prominent at C6-C7. Prominent multilevel bilateral facet arthrosis is present. There is associated multilevel anterolisthesis, most prominent at C5-C6 (grade 2). Multilevel degenerative canal stenoses are present - at least moderate at C3-C4 and C4-C5. Multilevel moderate to severe bilateral foraminal stenoses are due to uncovertebral and facet arthrosis. Incidental findings: There is mild scarring in the lung apices. Moderate right and mild left carotid bulb calcified plaque is present. IMPRESSION: 1. No acute osseous abnormalities. 2. Degenerative changes as described above. Signed by: Dr. Yoel Clark M.D. on 04/15/2020 7:22 PM
--- NOTE | 2020-04-15 19:40 | NUR ---
Wound cleaned with normal saline at this time
--- NOTE | 2020-04-15 20:47 | Diagnostic Imaging Report ---
PELVIS AP 1-2 VIEWS - 3 views HISTORY: Pain status post fall. COMPARISON: None available. FINDINGS: Bones: No acute displaced fracture. Osseous alignment is within normal limits. The sacrum and coccyx are obscured by rectal contents. Joints: Multilevel degenerative changes of the lumbar spine. Degenerative changes of the bilateral hip and SI joints. Soft tissues: Extensive soft tissue calcification about the hips somewhat limited evaluation. Multiple surgical clips projected on the lower pelvis. IMPRESSION: No acute displaced fracture on this limited exam. If concern remains, consider CT pelvis without contrast for further relation. Signed by: Dr. Veda Man M.D. on 04/15/2020 8:43 PM
--- NOTE | 2020-04-15 20:58 | Diagnostic Imaging Report ---
EXAMINATION: RIBS UNILAT W/CXR MULTIPLE VIEWS WITH CHEST PA INDICATION: Trauma. Fall. COMPARISON: None FINDINGS: TUBES and LINES: None. LUNGS: Lungs are well inflated. Lungs are clear. There is no evidence of pneumonia or pulmonary edema. PLEURA: No pleural effusion or pneumothorax. HEART AND MEDIASTINUM: Cardiac size is moderately enlarged. There are atherosclerotic calcifications within the aorta. BONES AND SOFT TISSUES: There are degenerative changes in the thoracic spine and bilateral shoulder.. Advanced degenerative changes of the lumbar spine with osteophyte of the upper lumbar vertebra suggestive of compression fracture not well evaluated with this examination. UPPER ABDOMEN: No free air under the diaphragm. IMPRESSION: No acute thoracic abnormality. No evidence of displaced rib fractures as per clinical query. Compression fracture deformity of a upper lumbar vertebra not well visualized with this exam. If back pain, consider dedicated rib series. Signed by: Dr. Veda Man M.D. on 04/15/2020 8:54 PM
[2020-04-15 21:05] VITALS: BP 5/8
--- NOTE | 2020-04-15 21:22 | Emergency Department Note ---
History of Present Illnes History of Present Illness Chief Complaint: General Medicine Complaints History of Present Illness This is a 84 year old male arrives to the ED after sustaining a mechanical fall, noted to have a abrasion over forehead and scalp . Historian: Patient, Family Member Arrival Mode: Car Severity: mild Onset quality: sudden Duration (how long): hour(s) Timing of current episode: constant Progression: unchanged Chronicity: new Context: Reports trauma/injury Past Medical/Family History Physician Review I have reviewed the patient's past medical and family history. Any updates have been documented here. Past Medical History Recent Fever: No Clinical Suspicion of Infectio: No New/Unexplained Change in Ment: No Past Medical History: Hypertension, Hyperlipedemia Other Medical History: DEMENTIA SUBDURAL HEMATOMA Past Surgical History: Knee Replacement, Cataract Removal Social History Counseling Performed: No Any Illegal Drug Use: No Other Last Tetanus: UUNKNOWN Any Pre-Existing Lines (PICC,: No Review of Systems Review of Systems Constitutional: Reports no symptoms EENTM: Reports no symptoms Cardiovascular: Reports no symptoms Respiratory: Reports no symptoms Gastrointestinal: Reports no symptoms Genitourinary: Reports no symptoms Musculoskeletal: Reports no symptoms Integumentary: Reports no symptoms Neurological: Reports no symptoms Psychological: Reports no symptoms Endocrine: Reports no symptoms Hematological/Lymphatic: Reports no symptoms Physical Exam Related Data Allergies: Coded Allergies: No Known Allergies (Unverified , 09/12/15) Triage Vital Signs Vital Signs Date Time Temp Pulse Resp B/P (MAP) Pulse Ox O2 Delivery O2 Flow Rate FiO2 04/15/20 17:20 97.6 68 18 127/61 96 Room Air Vital signs reviewed: Yes Physical Exam CONSTITUTIONAL Constitutional: Present well-developed, Present well-nourished HENT HENT: Present normocephalic, Present oropharynx clear/moist, Present nose normal, Present other (abrasion noted over forehead and left scalp no active bleeding) HENT L/R: Present left ext ear normal, Present right ext ear normal EYES Eyes: Reports PERRL, Reports conjunctivae normal NECK Neck: Present ROM normal PULMONARY Pulmonary: Present effort normal, Present breath sounds normal CARDIOVASCULAR Cardiovascular: Present regular rhythm, Present heart sounds normal, Present capillary refill normal, Present normal rate GASTROINTESTINAL Abdominal: Present soft, Present nontender, Present bowel sounds normal GENITOURINARY Genitourinary: Present exam deferred SKIN Skin: Present warm, Present dry MUSCULOSKELETAL Musculoskeletal: Present ROM normal NEUROLOGICAL Neurological: Present alert, Present oriented x 3, Present no gross motor or sensory deficits PSYCHOLOGICAL Psychological: Present mood/affect normal, Present judgement normal Results Laboratory Lab results reviewed: Yes Imaging Imaging results reviewed: Yes Impressions IMPRESSION: 1. No acute intracranial abnormalities. 2. Mild supratentorial chronic microvascular ischemic change. 3. Left thalamocapsular prominent perivascular space versus old lacunar infarct. 4. Mild generalized cerebral volume loss, slightly accentuated along the mesial temporal lobes. 5. Prior left parietal craniotomy. Assessment & Plan Medical Decision Making MDM 84 yo MF presents with rib pain after sustaining a mechanical fall several hours prior to arrival. Head CT negative for fracture, negative for intracranial bleed . Cervical spine CT negative for for fracture or dislocation. Chest CT/Xray negative for fracture, pneumothorax. Abdominal CT negative for intrabdominal bleeding, solid, or holo viscous injury. Plevic Xray negative for fracture. The patient is not on aspirin, plavix, Coumadin, or any other blood thinners. Chief Complaint Comment PATIENT IN FROM HOME WITH COMPLAINTS OF TRIP AND FALL AT ABOUT 1630; DENIES LOC, APPEARS IN NO DISTRESS, RESP EVEN AND NONLABORED, RESP EVEN AND NONLABORED. PATIENT WITH ABRASION TO RIGHT FOREHEAD, LEFT ELBOW, LEFT FINGERS AND C/O PAIN TO RIGHT RIBS. PATIENT ABBULATORY WITH ASSISTANCE Assessment & Plan Final Impression: (1) Closed head injury Depart Disposition: HOME, SELF-CARE Last Vital Signs Date Time Temp Pulse Resp B/P (MAP) Pulse Ox O2 Delivery O2 Flow Rate FiO2 04/15/20 21:05 55 18 100 04/15/20 20:55 141/75 Room Air 04/15/20 17:20 97.6 Home Meds Reported Medications Spironolactone (ALDACTONE) 50 Mg Tablet, 25 MG PO DAILY 10/13/17 Pravastatin Sodium (PRAVASTATIN SODIUM) 20 Mg Tablet, 20 MG PO DAILY 10/13/17 Alendronate Sodium (ALENDRONATE SODIUM) 70 Mg Tablet, 70 MG PO WKLY 09/12/15 Doxazosin Mesylate (DOXAZOSIN MESYLATE) 2 Mg Tablet, 2 MG PO DAILY, #30 TAB 09/12/15 Lisinopril* (ZESTRIL*) 20 Mg Tablet, 10 MG PO DAILY 09/12/15 Medications in the ED Acetaminophen/ Hydrocodone Bitart 1 ea ONCE PRN PO MODERATE PAIN (4-6); Start 04/15/20 at 18:45; Stop 04/22/20 at 18:44 ODILIA MARQUEZ DO Apr 15, 2020 21:22
[2020-04-15] MEDS ORDERED: LIDOCAINE 4% PATCH TP ONE ×2 (21:30→21:36)
[2020-04-15] MEDS ORDERED: BACITRACIN ZINC 0.9GM TP ONE ×2 (21:36→21:45)
== END 2020-04-15 21:48 | disposition home or self-care (01) ==
LOC: ER 17:32
DX: S00.83XA Contusion of other part of head, initial encounter (principal); W01.0XXA Fall on same level from slipping, tripping and stumbling without subsequent striking against object, initial encounter; Y93.01 Activity, walking, marching and hiking; F03.90 Unspecified dementia, unspecified severity, without behavioral disturbance, psychotic disturbance, mood disturbance, and anxiety; I10 Essential (primary) hypertension; E78.5 Hyperlipidemia, unspecified
CPT/HCPCS: 70450; 71101; 72125; 72170; 99283